=== PATIENT | female | born 1965 | race American Indian/Alaskan Native ===

== ENCOUNTER 2021-03-23 09:15 | Outpatient (CLI) | payer OTHER ==
--- NOTE | 2021-03-23 11:19 | XRay Report ---
LUMBOSACRAL SPINE 3 VIEWS INDICATION: LOW BACK PAIN. COMPARISON: None. IMPRESSION: Normal alignment. Mild discogenic DJD and facet arthropathy are identified at L1-2. Mod erate to severe discogenic DJD and facet arthropathy are identified at L5-S1. The remaining levels ar e unremarkable. No acute osseous or soft tissue abnormality. BILATERAL KNEES 2 VIEW INDICATION: Arthritis bilateral knees. COMPARISON: None. IMPRESSION: Within the right knee, moderate to severe tricompartmental osteoarthritic changes are id entified. The medial compartment is most affected where there is near complete loss of joint space. No acute osseous abnormality or bone lesion. No significant joint effusion is appreciated. Within the left knee, moderate tricompartmental osteoarthritic changes are identified. Again the medial compart ment appears most affected. No acute osseous abnormality or bone lesion. Small left knee effusion is identified on the lateral view. Signer Name: Per Fan Jr, MD Signed: 03/23/2021 11:14 AM Workstation Name: [id number]
== END 2021-03-23 09:16 | disposition home or self-care (01) ==
LOC: XRAY 09:15
PROVIDERS: ATTEND Internal Medicine
DX: M17.0 Bilateral primary osteoarthritis of knee (principal); M25.462 Effusion, left knee; M47.817 Spondylosis without myelopathy or radiculopathy, lumbosacral region
CPT/HCPCS: 72100